=== PATIENT | male | born 1980 | race African-American/Black ===

== ENCOUNTER 2023-04-13 10:45 | Day surgery (SDC) | payer OTHER ==
[2023-04-09 11:38] VITALS: BMI 29.0
[2023-04-13 12:54] VITALS: RESP 16; TEMP 97.7
[2023-04-13 13:16] VITALS: BP 114/70; PULSE 74
== END 2023-04-13 13:20 | disposition home or self-care (01) ==
LOC: FASU-ENDO 10:45
PROVIDERS: ATTEND Internal Medicine Gastroenterology
PROC: 0DB68ZX Excision of Stomach, Via Natural or Artificial Opening Endoscopic, Diagnostic (ICD-10-PCS; 2023-04-13)
PROC: 0DB48ZX Excision of Esophagogastric Junction, Via Natural or Artificial Opening Endoscopic, Diagnostic (ICD-10-PCS; 2023-04-13)
PROC: 0DB98ZX Excision of Duodenum, Via Natural or Artificial Opening Endoscopic, Diagnostic (ICD-10-PCS; principal; 2023-04-13 12:22)
DX: K29.50 Unspecified chronic gastritis without bleeding (principal); K20.90 Esophagitis, unspecified without bleeding; R10.13 Epigastric pain
CPT/HCPCS: 88305-TC; 88342-TC